=== PATIENT | female | born 1980 | race Caucasian/White ===

== ENCOUNTER 2024-10-02 09:55 | Emergency (ER) | payer OTHER, SELFPAY ==
--- OUTSIDE RECORDS SUMMARY | 2024-10-02 09:57 | XMS_ITS | Clinical Summary ---
Author Organization [facility] Address [address] [place] [address] Care Team Providers Care Stockroom Clerk Name Role Phone Needs Pcp, Assignment Primary Care Provider [phone] Source Comments You are receiving this document as you are listed as the primary care provider,follow-up provider, or the patient has been referred to you for consultation.This is in compliance with the Medicare and[facility] EHR Incentive Program,which states Providers who transition their patient to another setting of careor provider of care or refers their patient to another provider of care shouldprovide summary care record for each transition of care or referral. [employer] Allergies Active Allergy Reactions Criticality Noted Date Comments Penicillins 11/29/2007 PN: LW Reaction: Unknown Reaction Medications cyclobenzaprine (FLEXERIL) 10 MG tabletIndicatio ns:Spasm of muscle 1 tab po qhs prn pain/spasm 30 Tab 0 7 Active methylPREDNISol one (MEDROL 21 TABLET DOSEPACK) 4 MG tabletIndicatio ns:Mid back pain on right side,Spasm of muscle Follow package directions 21 Tab 0 7 Active methocarbamol (ROBAXIN) 500 MG tabletIndicatio ns:Spasm of muscle Take 1 Tab by mouth 4 times a day. Prn muscle spasm. 30 Tab 0 7 Active Active Problems Problem Noted Date Diagnosed Date Previous delivery affecting , antepartum 07/10/2014 Resolved Problems Problem Noted Date Diagnosed Date Resolved Date Encounter for supervision of other normal 07/10/2014 08/27/2016 Overview (12/31/2016): Supervision of other normal Hx of gestational diabetes i n prior , currently 07/10/2014 08/27/2016 delivery delivered 11/29/2007 07/10/2014 Overview (12/31/2016): LW Onset: 1998 ; Delivery Encounter for supervision of other normal 11/29/2007 07/10/2014 Overview (12/31/2016): LW Modifier: LMP 08/21/07 LW Onset: edc05/27/08 ; Preg Normal Not 1st Preg Immunizations Immunization Administration Dates Next Due TDAP (BOOSTRIX) 11/14/2014 Family History Medical History Relation Name Comments Diabetes Maternal Grandfather Diabetes Maternal Grandmother Diabetes Paternal Grandmother Relation Name Status Comments Father Alive Mother Alive Brother Alive Maternal Grandfather Maternal Grandmother Paternal Grandfather Paternal Grandmother Alive Social History Tobacco Use Types Packs/Day Years Used Date Smoking Tobacco: Never Smokeless Tobacco: Never Alcohol Use Standard Drinks/Week Comments No 0 (1 standard drink = 0.6 oz pure alcohol) Alcoholic Drinks/day: Freq:Never; Comments No Sex and Gender Information Value Date Recorded Sex Assigned at Not on file Legal Sex Female 12:22 AM CDT Gender Identity Not on file Sexual Orientation Not on file Last Filed Vital Signs Vital Sign Reading Time Taken Comments Blood Pressure 110/68 08/27/2016 1:37 PM CDT Pulse 90 08/27/2016 1:37 PM CDT Temperature 36.2 C (97.2 F) 05/01/2008 2:03 PM [employer] ORAL C: 36.2 C Respiratory Rate 24 05/01/2008 2:03 PM [employer] Oxygen Saturation 98% 05/01/2008 2:0 3 PM [employer] Inhaled Oxygen Concentration - - Weight 72.6 kg (160 lb) 08/27/2016 1:37 PM CDT Height 165.1 cm (5' 5) 03/21/2015 9:32 AM [employer] Body Mass Index 26.63 03/21/2015 9:32 AM [employer] Plan of Treatment Health Maintenance Due Date Last Done Comments Hep C Screening (Preventive Services) 1980 Mammogram 1980 Adult Preventive Visit 1998 HepB Vaccine (1) 10/28/1999 Cervical Cancer Screening Due 07/11/2014, 11/29/2007 COVID-19 Vaccine (1 - 2023-2 5 season) 2024 DTaP/Tdap/Td Vaccine (2 - Tdap) 11/14/2024 11/14/2014 Influenza Vaccine (Season Ended) 2025 Zoster/Shingles Vaccine (1 o f 2) 2030 HIV Screening (Preventive Services) Completed 07/10/2014, 11/29/2007 HPV Vaccine Aged Out No longer eligi ble based on patient's age to complete this topic HepA Vaccine Aged Out No longer eligi ble based on patient's age to complete this topic Hib Vaccine Aged Out No longer eligi ble based on patient's age to complete this topic IPV (Polio) Vaccine Aged Out No longe r eligible based on patient's age to complete this topic MCV4 Vaccine Aged Out No longer eligi ble based on patient's age to complete this topic Meningococcal B Vaccine Aged Out No l onger eligible based on patient's age to complete this topic Pneumococcal Vaccine Aged Out No long er eligible based on patient's age to complete this topic Procedures Procedure Name Priority Date/Time Associated Diagnosis Comments HIV ANTIBODY Routine 07/10/2014 8:46 AM [employer] Special screening examination for other specified viral diseases ANATOMICAL PATH LIQUID BASED Routine 07/10/2014 8:39 AM [employer] from Last 3 Months or Most Recently Relevant to Health Maintenance Results * HIV ANTIBODY (07/10/2014 8:46 AM [employer]) HIV 1/HIV 2 Non-React Non-Reacti ve HP CONVERSION 07/10/2014 8:46 AM [employer] 07/10/2014 12:35 PM [employer]ER Narrative HP CONVERSION - 07/10/2014 3:14 PM [employer] Performed at [facility], [address] [place] [id number] Transcriptions 06/19/2016 10:43 AM CSTNotes Recorded by Lizzy Martinez, AGILE SCRUM COACH, SCHEDULE MANAGER on 07/10/2014 at 6:46 PMplease send normal results to LD. Pt will be informed at next visit us Lizzy Martinez APRN, CNP LAB_1 Fi nal Result Performing Organization Address [facility] Co de Phone Number HP CONVERSION * Pap Smear (07/10/2014 8:39 AM [employer]) 07/10/2014 8:39 AM [employer]ER Narrative HP CONVERSION - 07/16/2014 6:25 PM CDT Performed at [address] [address] FINAL GYNECOLOGICAL CYTOLOGY REPORT Pathology #: [id number] Date Obtained: 07/10/2014 Date Received: 07/11/2014 INTERPRETATION/RESULTS: Negative for Intraepithelial Lesion or Malignancy. SPECIMEN ADEQUACY: Satisfactory for Evaluation. No endocervical cells/transformation zone component present; patient is . Verified on 07/16/2014 by MIKALA STEWART(ASCP) (electronic signature) CLINICAL NOTES: Abnormal bleeding: No, LMP: 05/04/14, Hormonal TX: No, LIQUID BASED PAP SMEAR SPECIMEN TYPE: CERVICAL WITH REFLEX TO HPV IF ASCUS PLEASE NOTE: The pap smear is a screening test designed to aid in the detection of cervical cancer and its precursor lesions. It is not a diagnostic procedure and should not be used as the sole means of detecting cervical cancer. Both false-positive and false-negative reports may occur. End of Report Transcriptions 06/19/2016 10:25 AM CSTNotes Recorded by Lizzy Martinez APRN, CNP on 07/18/2014 at 5:06 PMPlease send normal pap letter. us Lizzy Martinez APRN, CNP LAB_1 Fi nal Result Performing Organization Address City/[facility]/ZIP Co de Phone Number HP CONVERSION from Last 3 Months or Most Recently Relevant to Health Maintenance Insurance HP SELF INSURED Care Teams Stockroom Clerk Relationship Specialty Start Date End Date Needs Pcp, [place] [address] PCP - General 08/29/16
[2024-10-02 10:00] VITALS: BP 134/72; PULSE 100; RESP 20; TEMP 36.8; O2SAT 100; BMI 22.3
--- NOTE | 2024-10-02 10:12 | ED_ITS ---
HPI - General Adult General Chief complaint: Flank Pain Stated complaint: Possible Kidney Stones Time Seen by Provider: 10/02/24 09:58 History of Present Illness HPI narrative: Urinary frequency starting yesterday afternoon. Be evening, felt chilled and feverish, multiple emesis . Pain continues today . Went to [facility] in [place] and urine dip had blood. Hx UTIs, but none in past few years. No hx kidney stones. 43-year-old woman presenting to the emergency department with complaint of right abdominal and flank pain. Started to experience some frequency yesterday afternoon and in the evening pain escalated. Did not measure a fever but felt chilled and feverish. Unable to sleep last night with discomfort rolling from side to side in bed. Could not even have the dogs in the bed. Seen at [facility] today with hematuria. No history kidney stones. Has been vomiting Related Data Previous Rx's ?Medication ?Instructions ?Recorded tamsulosin 0.4 mg capsule (Flomax) 0.4 mg PO DAILY PRN #14 caps 10/02/24 Allergies Allergy/AdvReac Type Severity Reaction Status Date / Time Penicillins Allergy Unknown Verified 10/02/24 10:00 [facility] Social History Smoking Status: Current every day smoker How often do you have a drink containing alcohol: monthly or less AUDIT-C Alcohol total score: 1 Non-prescribed substance use: marijuana (any form) Exam Narrative: Exam Narrative: Pleasant. Does seem uncomfortable. A little restless in apparent discomfort. Flushed. Leaning to the left a little bit. Extremities are well perfused. No peripheral edema. Heart in elevated rate regular rhythm. Breathing easily. Abdomen is soft. She is tender to percussion in the right flank. Const: Vital Signs, click to edit/add: Vital Signs - 24 hr 10/02/24 10:00 10/02/24 11:13 Temperature 98.3 F Pulse Rate [Pulse Oximeter] 100 55 L Respiratory Rate 20 16 Blood Pressure [Ri ght Upper Arm] 134/72 101/62 Pulse Oximetry 100 100 Oxygen Delivery Me thod Room Air Room Air Documenting provider has reviewed patient's vital signs: yes Course Vital Signs Vital signs: Initial Vital Signs Temperature 98.3 F 10/02/24 10:00 Temperature Source Temporal Artery Scan 10/02/24 10:00 Pulse Rate 100 10/02/24 10:00 Respiratory Rate 20 10/02/24 10:00 Blood Pressure 134/72 10/02/24 10:00 Blood Pressure Mean 92 10/02/24 10:00 Blood Pressure Position Sitting 10/02/24 10:00 Pulse Oximetry 100 10/02/24 10:00 Oxygen Delivery Method Room Air 10/02/24 10:00 Vital Signs Temperature 98.3 F 10/02/24 10:00 Pulse Rate 100 10/02/24 10:00 Respiratory Rate 20 10/02/24 10:00 Blood Pressure 134/72 10/02/24 10:00 Pulse Oximetry 100 10/02/24 10:00 Oxygen Delivery Method Room Air 10/02/24 10:00 Temperature 98.3 F 10/02/24 10:00 Pulse Rate 55 L 10/02/24 11:13 Respiratory Rate 16 10/02/24 11:13 Blood Pressure 101/62 10/02/24 11:13 Pulse Oximetry 100 10/02/24 11:13 Oxygen Delivery Method Room Air 10/02/24 11:13 Medications Administered Medications: Discontinued Medications Generic Name Dose Route Start Last Admin Trade Name Freq PRN Reason Stop Dose Admin Sodium Chloride 1,000 mls @ 1,000 mls/hr 10/02/24 10:18 10/02/24 11:15 0.9 % Sodium Chloride 1000 Ml IV 10/02/24 11:17 Infused .Q1H ONE Infusion Ketorolac Tromethamine 30 mg 10/02/24 10:18 10/02/24 10:33 Ketorolac 30 Mg/Ml Inj IVP 10/02/24 10:19 30 mg ONCE ONE Administration Morphine Sulfate 4 mg 10/02/24 10:18 10/02/24 10:33 Morphine 4 Mg/Ml Inj IVP 10/02/24 10:19 4 mg ONCE ONE Administration Ondansetron HCl 4 mg 10/02/24 10:18 10/02/24 10:33 Ondansetron 2 Mg/Ml Inj IVP 10/02/24 10:19 4 mg ONCE ONE Administration Tamsulosin HCl 0.4 mg 10/02/24 11:22 10/02/24 11:43 Tamsulosin Hcl 0.4 Mg Capsule PO 10/02/24 11:23 0.4 mg ONCE ONE Administration Medical Decision Making MDM Narrative Medical decision making narrative: I do suspect ureteral stone and colic here. Will check though also urinalysis for evidence of infection. IV fluids, morphine, ketorolac, Zofran. CT scan of abdomen and pelvis independently reviewed by me shows a right side intrarenal kidney stone in the lower pelvis and an approximately 4 mm stone at right ureteral vesicular junction INDICATION: Flank pain, kidney stone suspected. COMPARISON: None TECHNIQUE: CT examination of the abdomen and pelvis was performed without intravenous contrast. Thin section axial images were obtained from the lung bases through the pubic symphysis. Oral contrast was not administered. Please note that all CT scans at this facility use dose modulation, iterative reconstruction, and/or weight-based dosing when appropriate to reduce radiation dose to as low as reasonably achievable. FINDINGS: LUNG BASES: The lung bases as visualized appear normal.The heart size is normal at the lung bases. LIVER/BILIARY SYSTEM:The liver is normal in size and configuration given the lack of intravenous contrast. There is no visible focal mass and there is no intra- or extra hepatic biliary ductal dilatation.The gall bladder appears normal. ADRENALS: Normal non-contrast appearance KIDNEYS, URETERS and BLADDER:Faint intrarenal papillary hyperdensities bilaterally. No measurable calculi on the left. There is a right lower pole renal calculus measuring 3.4 millimeters. Enlarged edematous right kidney. Right perinephric and right periureteric stranding. Right hydronephrosis and right hydroureter noted. This is due to a 4 millimeter calcified calculus at the inner orifice of the right ureterovesical junction. The bladder appears normal SPLEEN:Normal non-contrast appearance. PANCREAS: Normal non-contrast appearance. RETROPERITONEUM and MESENTERY: There is no mass, adenopathy or aortic aneurysm. GASTROINTESTINAL SYSTEM: There is no evidence of diverticulitis, colitis, mechanical obstruction, or appendicitis. The small bowel as visualized appears normal. PELVIS: No mass, adenopathy or free fluid.Mild free fluid in the pelvis. OSSEOUS STRUCTURES and ABDOMINAL WALL: There is an age-appropriate appearance of the osseous structures.No significant abdominal wall defect. OTHER: No free fluid or free air. IMPRESSION: Right-sided obstructive uropathy due to a 4 millimeter calcified calculus at the inner orifice of the right ureterovesical junction. Right lower pole intra renal calculus measuring 3.4 millimeters. Faint renal papillary hyperdensities bilaterally but no additional measurable intrarenal calculi. Please note that all CT scans at this facility use dose modulation, iterative reconstruction, and/or weight-based dosing when appropriate to reduce radiation dose to as low as reasonably achievable. Dictated by Nestor James MD @ 10/02/2024 10:58:33 AM On reassessment is significantly improved. Also given Flomax. Urinalysis I think without nitrite and leukocyte esterase is more registered representative of inflammation in the urinary tract system consistent with ureteral stone as evidenced on CT scan. See patient discharge plan for further discussion Continue to stay well-hydrated. Consider straining your urine over this next week. Can take up to 600 mg of ibuprofen per dose. I am also prescribing some Percocet, an opiate from [facility]. Each tablet of Percocet also contains 325 mg of acetaminophen. Also from [facility], Zofran for nausea. Sending in a prescription for Flomax which can be helpful with that spasming pain. Take this until you think this stone is passed. Be seen if pain is persisting at 5 days, uncontrolled pain, fever. Urine culture will be pending here and we will call you if it appears that you might require further treatment. Lab Data Labs: Lab Results 10/02/24 10/02/24 Range/Units 10:26 11:15 WBC 9.71 (4.50-11.00) K/uL RBC 5.03 (4.00-5.20) m/uL Hgb 10.5 L (12.0-16.0) gm/dL Hct 35.6 (33.0-51.0) % MCV 71 L (80-100) fL MCH 21 L (26-34) pg MCHC 30 L (32-36) gm/dL RDW Coeff of Chantel 18.2 H (11.5-15.5) % Plt Count 298 (140-440) K/uL Neut % (Auto) 79.2 H (42.0-72.0) % Lymph % (Auto) 11.1 L (20-44) % [place] % (Auto) 9.4 (0.0-11.0) % Eos % (Auto) 0.0 (0.0-7.0) % Baso % (Auto) 0.2 (0.0-3.0) % Neut # (Auto) 7.70 H (1.7-7.0) K/uL Lymph # (Auto) 1.10 (0.90-2.90) K/uL [place] # (Auto) 0.90 (0.00-0.90) K/UL Eos # (Auto) 0.00 (0.00-0.50) K/uL Baso # (Auto) 0.02 (0.00-0.30) K/uL Abs Immat Gran (auto) 0.01 (0.00-0.30) K/uL Imm/Tot Granulo (auto) 0.1 % Sodium 136 (135-149) mmol/L Potassium 3.9 (3.6-5.1) mmol/L Chloride 108 (96-114) mmol/L Carbon Dioxide 22 (20-32) mmol/L Anion Gap 6 L (7-15) mEq/L BUN 17 (5-24) mg/dL Creatinine 0.8 (0.5-1.5) mg/dL Estimated Creat Clear 78.30 Estimated GFR 94 ml/min Glucose 114 (60-115) mg/dL Calcium 9.2 (8.4-10.6) mg/dL Urine Color Yellow (Yellow) Urine Appearance Clear (Clear) Urine pH 6.0 (5.0-8.5) Ur Specific [place] 1.025 (1.000-1.030) Urine Protein 1+ A (Negative) Urine Glucose (UA) Negative (Negative) Urine Ketones 3+ A (Negative) Urine Blood 3+ A (Negative) Urine Nitrite Negative (Negative) Urine Bilirubin 1+ A (Negative) Urine Urobilinogen 0.2 (0.2-1.0) Ur Leukocyte Esterase Negative (Negative) Urine RBC >100 A (0-2) Urine WBC 10-25 A (0-5) Ur Squamous Epith Cells Few (None-Few) Urine Bacteria Few A (None) Urine Mucus Few A (None) Discharge Plan Discharge Clinical Impression: Ureteral calculus, Kidney stone, Ureteral colic Patient Disposition: Home w/ Parent or Adult Condition: Improved Instructions: Kidney Stones (ED), How to Strain Your Urine (ED) Additional Instructions: Continue to stay well-hydrated. Consider straining your urine over this next week. Can take up to 600 mg of ibuprofen per dose. I am also prescribing some Percocet, an opiate from [facility]. Each tablet of Percocet also contains 325 mg of acetaminophen. Also from [facility], Zofran for nausea. Sending in a prescription for Flomax which can be helpful with that spasming pain. Take this until you think this stone is passed. Be seen if pain is persisting at 5 days, uncontrolled pain, fever. Urine culture will be pending here and we will call you if it appears that you might require further treatment. Prescriptions: New tamsulosin [Flomax] 0.4 mg capsule 0.4 mg PO DAILY PRNQty: 14 2RF Follow Up/Referrals: Provider,Not a Local [Non-Staff, Family Practice] Stand Alone Forms: [employer] Info Instructions
--- NOTE | 2024-10-02 10:18 | CRLHL7_ITS ---
For Patients: As a result of the 21st Century Cures Act, medical imaging exams and procedure reports are released immediately into your electronic medical record. You may view this report before your referring provider. If you have questions, please contact your health care provider. INDICATION: Flank pain, kidney stone suspected. COMPARISON: None TECHNIQUE: CT examination of the abdomen and pelvis was performed without intravenous contrast. Thin section axial images were obtained from the lung bases through the pubic symphysis. Oral contrast was not administered. Please note that all CT scans at this facility use dose modulation, iterative reconstruction, and/or weight-based dosing when appropriate to reduce radiation dose to as low as reasonably achievable. FINDINGS: LUNG BASES: The lung bases as visualized appear normal.The heart size is normal at the lung bases. LIVER/BILIARY SYSTEM:The liver is normal in size and configuration given the lack of intravenous contrast. There is no visible focal mass and there is no intra- or extra hepatic biliary ductal dilatation.The gall bladder appears normal. ADRENALS: Normal non-contrast appearance KIDNEYS, URETERS and BLADDER:Faint intrarenal papillary hyperdensities bilaterally. No measurable calculi on the left. There is a right lower pole renal calculus measuring 3.4 millimeters. Enlarged edematous right kidney. Right perinephric and right periureteric stranding. Right hydronephrosis and right hydroureter noted. This is due to a 4 millimeter calcified calculus at the inner orifice of the right ureterovesical junction. The bladder appears normal SPLEEN:Normal non-contrast appearance. PANCREAS: Normal non-contrast appearance. RETROPERITONEUM and MESENTERY: There is no mass, adenopathy or aortic aneurysm. GASTROINTESTINAL SYSTEM: There is no evidence of diverticulitis, colitis, mechanical obstruction, or appendicitis. The small bowel as visualized appears normal. PELVIS: No mass, adenopathy or free fluid.Mild free fluid in the pelvis. OSSEOUS STRUCTURES and ABDOMINAL WALL: There is an age-appropriate appearance of the osseous structures.No significant abdominal wall defect. OTHER: No free fluid or free air. IMPRESSION: Right-sided obstructive uropathy due to a 4 millimeter calcified calculus at the inner orifice of the right ureterovesical junction. Right lower pole intra renal calculus measuring 3.4 millimeters. Faint renal papillary hyperdensities bilaterally but no additional measurable intrarenal calculi. Please note that all CT scans at this facility use dose modulation, iterative reconstruction, and/or weight-based dosing when appropriate to reduce radiation dose to as low as reasonably achievable. Dictated by Nestor James MD @ 10/02/2024 10:58:33 AM (Electronically Signed)
[2024-10-02] MEDS: KETOROLAC 30 MG/ML inj IVP (10:33)
[2024-10-02] MEDS: MORPHINE 4 MG/ML INJ IVP (10:33)
[2024-10-02] MEDS: ONDANSETRON 2 MG/ML inj 4 MG IVP (10:33)
[2024-10-02] MEDS: 0.9 % SODIUM CHLORIDE 1000 ml 1,000 ML IV (10:34)
[2024-10-02 10:42] LABS: Basophils Absolute Auto 0.02 K/uL (0.00-0.30); Basophils Percent Auto 0.2 % (0.0-3.0); Hematocrit 35.6 % (33.0-51.0); Hemoglobin* 10.5 gm/dL (12.0-16.0); Immature Granulocytes Abs Auto 0.01 K/uL (0.00-0.30); Immature Granulocytes Pct Auto 0.1 %; Lymphocytes Percent Auto 11.1 % (20-44); Mean Corpuscular HGB Conc 30 gm/dL (32-36); Mean Corpuscular Hemoglobin 21 pg (26-34); Mean Corpuscular Volume 71 fL (80-100); Monocytes Percent Auto 9.4 % (0.0-11.0); Neutrophils Percent Auto 79.2 % (42.0-72.0); Platelet Count* 298 K/uL (140-440); RDW Coefficient of Variation % 18.2 % (11.5-15.5); Red Blood Count 5.03 m/uL (4.00-5.20); White Blood Count* 9.71 K/uL (4.50-11.00)
[2024-10-02 10:45] LABS: Slide Review Reflex No
[2024-10-02 10:47] LABS: Chloride* 108 mmol/L (96-114); Potassium* 3.9 mmol/L (3.6-5.1); Sodium* 136 mmol/L (135-149)
[2024-10-02 10:50] LABS: Anion Gap 6 mEq/L (7-15); Blood Urea Nitrogen* 17 mg/dL (5-24); Calcium* 9.2 mg/dL (8.4-10.6); Carbon Dioxide* 22 mmol/L (20-32); Creatinine* 0.8 mg/dL (0.5-1.5); Estimated Glomerular Filt Rate 94 ml/min; Glucose* 114 mg/dL (60-115)
[2024-10-02 11:13] VITALS: BP 101/62; PULSE 55; RESP 16; O2SAT 100
[2024-10-02 11:19] LABS: Appearance Urine Clear (Clear); Bilirubin Urine 1+ (Negative); Blood Urine 3+ (Negative); Color Urine Yellow (Yellow); Glucose Urine Negative (Negative); Ketones Urine 3+ (Negative); Leukocyte Esterase Urine Negative (Negative); Nitrite Urine Negative (Negative); Protein Urine 1+ (Negative); Specific Gravity Urine 1.025 (1.000-1.030); Urobilinogen Urine 0.2 (0.2-1.0)
[2024-10-02 11:29] LABS: Bacteria Urine Few; Mucus Urine Few; RBC Urine >100 (0-2); Squamous Epithelial Cell Urine Few (None-Few)
[2024-10-02] MEDS: TAMSULOSIN HCL 0.4 MG CAPSULE PO (11:43)
== END 2024-10-02 12:00 | disposition home or self-care (01) ==
PROVIDERS: Emergency Provider Family Medicine; PCP Family Medicine
DX: N20.2 Calculus of kidney with calculus of ureter (principal)
CPT/HCPCS: 36415; 74176; 80048; 81001; 85025; 87086; 96374; 96375; 99284; A9270; J1885; J2270; J2405; J7030